=== PATIENT | female | born 1975 | race Caucasian/White ===

== ENCOUNTER → 2017-01-05 | Outpatient (CLI) | payer OTHER ==
[~2017-01-05] MED LIST: ACCUNEB SO1.25 MG/1 INH; FLONASE 0.05%50 MCG NASAL; LOESTRIN1 EAC1 PO; NOHOMEMEDICATIONS; NORCO 5-325 TA1 EACH PO; PERCOCET 5-3251 EACH PO; PHENERGAN 25 MG25 M1 PO; VENTOLIN HFA 1818 GM INH
== END ==
LOC: RAD 04:02
DX: R92.2 Inconclusive mammogram (principal)

== ENCOUNTER → 2017-06-26 | Outpatient (CLI) | payer OTHER | LOC: RAD 00:49 | DX: R92.2 Inconclusive mammogram (principal) ==

== ENCOUNTER → 2018-02-28 | Outpatient (CLI) | payer OTHER | LOC: RAD 14:58 | DX: S69.91XA Unspecified injury of right wrist, hand and finger(s), initial encounter (principal); M25.532 Pain in left wrist; Z78.9 Other specified health status; X58.XXXA Exposure to other specified factors, initial encounter; Y93.89 Activity, other specified; Y92.89 Other specified places as the place of occurrence of the external cause; Y99.8 Other external cause status ==

== ENCOUNTER → 2018-04-10 | Outpatient (CLI) | payer OTHER | LOC: ULTRA 13:10 | DX: N63.20 Unspecified lump in the left breast, unspecified quadrant (principal) ==